=== PATIENT | male | born 2000 | race Caucasian/White ===

== ENCOUNTER 2024-02-01 09:29 | Emergency (ER) | payer OTHER, SELFPAY ==
[2024-02-01 09:38] VITALS: BP 114/65; PULSE 90; RESP 20; TEMP 36.9; O2SAT 98
--- NOTE | 2024-02-01 10:17 | ED.URI ---
HPI - URI/Sore Throat General Chief Complaint: Upper Respiratory Infection Stated Complaint: throat Time Seen by Provider: 02/01/24 10:10 Source: patient, RN notes reviewed and old records reviewed Mode of arrival: ambulatory Limitations: no limitations History of Present Illness HPI Narrative: 23 year old male presents to [facility] with complaints of 2 weeks duration of sore throat, nasal congestion and drainage, facial pressure, Patient reports that he had some fevers when he was initially ill but none now. He reports that his throat remains sore and he noted some pustules in the back of his throat today.. Patient states that he has been taking allergy medication with no improvement in symptoms. He states he had negative COVID test at home 3 days ago. MD elicited complaint: sore throat, rhinorrhea and nasal congestion Onset (ago): week(s) (2) Consistency: constant Severity: moderate Able to tolerate fluids by mouth: Yes Exacerbating factors: swallowing Treatments prior to arrival: other (allergy medication) Related Data Allergies Allergy/AdvReac Type Severity Reaction Status Date / Time No Known Allergies Allergy Verified 02/01/24 09:42 Review of Systems Review of Systems: CONSTITUTIONAL:Reports malaise, no present chills, sweats, or fever. EYES: Denies visual changes, redness, or discharge. ENT: Reports rhinorrhea, congestion, sinus pain, no otalgia and positive for sore throat. CARDIOVASCULAR: Denies chest pain, palpitations, or edema. RESPIRATORY: Reports cough.? Denies dyspnea. GASTROINTESTINAL: Denies abdominal pain, nausea, vomiting, diarrhea SKIN: Denies rash or itching. MUSCULOSKELETAL: Denies myalgia. NEUROLOGIC: reports headache. All systems reviewed & are unremarkable except as noted in HPI and below PMFSH Social History Social History (Updated 02/02/24 @ 10:15 by Anna Cerrato NP) Smoking status: Never smoker Alcohol intake: current Alcohol use details: social Substance use type: does not use Living arrangements: with family Gender identity (if verbalized by the patient): Male Comments At time of signature, agree with nursing past medical, surgical, social and family history. There is no relevant family history pertinent to the presenting complaint Exam Narrative: GENERAL: Well-appearing, well-nourished, and in no acute distress. HEAD: Normocephalic EYES: PERRLA, conjunctivae clear ENT: Nares clear, turbinates edematous and erythematous, clear discharge facial pressure and headache,., Mucous membranes moist. TM pearly morin with dull light reflex bilaterally; no tragal tenderness. Oropharynx erythematous without lesions. Tonsils red minimally enlarged and with white exudates, no drooling, no hoarseness, no trismus, uvula midline.post nasal drainage noted NECK: Supple. lymphadenopathy CHEST: Clear to auscultation, breath sounds equal. No wheezing, rhonchi, rales, or stridor. No respiratory distress, speaks in full sentences.no acute cough noted SAO2 98% on room air HEART: Regular rate and rhythm. No murmur heard. SKIN: Warm, dry, no rash. NEURO: Alert and oriented x3. PSYCH: Normal mood and affect Course Course Emergency Course: Patient is aware of diagnosis, understands and agrees to treatment plan.? Anticipatory guidance given.? Patient agrees to follow-up as directed and is aware of reasons to seek care at the emergency department. Portions of this record may have been created with voice recognition software Level of Care: Express Care Visit Vital Signs Vital signs: Vital Signs Temperature 36.9 C 02/01/24 09:38 Pulse Rate 90 02/01/24 09:38 Respiratory Rate 20 02/01/24 09:38 Blood Pressure 114/65 02/01/24 09:38 Pulse Oximetry 98 02/01/24 09:38 Oxygen Delivery Room Air 02/01/24 09:38 Temperature 36.9 C 02/01/24 09:38 Pulse Rate 90 02/01/24 09:38 Respiratory Rate 20 02/01/24 09:38 Blood Pressure 114/65
== END 2024-02-01 10:27 | disposition home or self-care (01) ==
PROVIDERS: Emergency Provider Registered Nurse
DX: J02.9 Acute pharyngitis, unspecified (principal); J32.9 Chronic sinusitis, unspecified
CPT/HCPCS: 87081; 87880; 99213; G0463

== ENCOUNTER 2024-09-01 11:45 | Emergency (ER) | payer BC, SELFPAY ==
[2024-09-01 12:00] VITALS: BP 117/62; PULSE 81; RESP 20; TEMP 37; O2SAT 98
--- NOTE | 2024-09-01 19:46 | ED.URI ---
HPI - URI/Sore Throat General Chief Complaint: Upper Respiratory Infection Stated Complaint: Cough/Headache/Fever/Chills Source: patient, RN notes reviewed and old records reviewed Mode of arrival: ambulatory Limitations: no limitations History of Present Illness HPI Narrative: 24-year-old male to Express Care with complaint of headache, chills, cough since Thursday. Patient has attempted to treat at home with Tylenol and [id number] flu and cold medications with little relief. Patient denies fevers, allergies, pertinent medical history. Patient able to tolerate fluids by mouth. Patient resting in exam room in no acute distress, Appears tired and uncomfortable. Related Data Allergies Allergy/AdvReac Type Severity Reaction Status Date / Time No Known Allergies Allergy Verified 09/01/24 12:05 Review of Systems Review of Systems: All systems reviewed & are unremarkable except as noted in HPI and below Constitutional: Constitutional: Reports as per HPI, Reports chills and Reports headache(s) Eyes: Eyes: Reports no additional eye complaints ENT: Reports system reviewed and no additional complaints, except as documented Cardiovascular: Cardiovascular: Reports no additional cardiovascular complaints, Denies chest pain and Denies dyspnea Respiratory: Respiratory: Reports no additional respiratory complaints, Reports cough and Denies dyspnea Musculoskeletal: Musculoskeletal: Reports no additional musculoskeletal complaints Neurologic: Reports system reviewed and no additional complaints, except as documented Psychiatric: Psychiatric: Reports no additional psychiatric complaints PMFSH Social History Social History Smoking status: Never smoker Alcohol intake: current Alcohol use details: social Substance use type: does not use Living arrangements: with family Gender identity (if verbalized by the patient): Male Comments At the time of my signature, I reviewed and agree with the nursing past medical, surgical, social, and family history. There is no relevant family history pertinent to the patient complaint. Exam Const: General: cooperative, no acute distress, alert, tired appearing, uncomfortable and well nourished Nutritional Appearance: well nourished Orientation/consciousness: patient oriented x3 Limitations: no limitations HENMT: Head: normal to inspection Ears: external ears normal Face/Nose/Sinus: Normal external nose present, Normal nares present, normal facial exam, No erythema and No edema Face and sinus: normal facial exam, no erythema and no edema Mouth: Yes Normal oral and palatal mucosa present Eyes: General: appearance normal, both eyes and all related structures Neck: Neck: normal visual inspection, full ROM and no meningeal signs Lymphatic: no lymphadenopathy noted and no lymphedema noted Chest: Chest palpation & inspection: normal inspection of the chest Resp: Effort & Inspection: normal respiratory effort and able to speak in complete sentences Auscultation: diminished lung sounds on the left in the lower lung millan Cardio: Jugular venous distension: no JVD Rate: regular rate Rhythm: regular rhythm Back/Spine/Pelvis: Cervical Spine: cervical ROM normal Skin: General skin exam: normal color, no rashes or lesions noted and turgor normal Neuro: General: patient oriented x3, gait normal, moves all extremities and no meningeal signs Speech: normal speech Gait exam (Neuro): Normal gait present Extrem: General: normal to inspection, full ROM and capillary refill normal Psych: Appearance: grossly normal and well kempt Course Course Emergency Course: Some parts of this dictation were generated by voice recognition software and may contain typographical and/or grammatical inaccuracies. Level of Care: Express Care Visit Vital Signs Vital signs: Vital Signs Temperature 37.0 C 09/01/24 12:00 Pulse Rate 8
== END 2024-09-01 13:00 | disposition home or self-care (01) ==
PROVIDERS: Emergency Provider Nurse Practitioner Family
DX: J18.9 Pneumonia, unspecified organism (principal)
CPT/HCPCS: 99213; G0463

== ENCOUNTER 2025-03-12 08:36 | Emergency (ER) | payer BC, SELFPAY ==
[2025-03-12 08:38] VITALS: BP 113/75; PULSE 65; RESP 16; TEMP 36.6; O2SAT 99
[2025-03-12] MEDS: TETANUS,DIPHTHERIA,AC PERTUSSIS ADULT (0.5 ML) BOOSTRIX IM (08:53)
[2025-03-12] MEDS: CELLULOSE OXIDIZED 2 x 14 INCH 1 PKT XX (09:14)
--- NOTE | 2025-03-12 09:21 | ED_ITS ---
HPI - General Adult General Chief complaint: Skin/Abscess/Foreign Body Stated complaint: Dog Bite/Left Hand Source: patient Mode of arrival: ambulatory Limitations: no limitations History of Present Illness HPI narrative: Pt presents for evaluation of dog bites to the left hand that occurred just [employer]. His girlfriend's brother's dog bit him when he was attempting to wipe it's feet off. He states the dog is a pitbull mix. He believes the dog is UTD on vaccinations. Pt is unsure when his last tetanus vaccine was. He denies any pain. No loss of ROM. He is ambidextrous. He is not diabetic. Related Data Allergies Allergy/AdvReac Type Severity Reaction Status Date / Time No Known Allergies Allergy Verified 03/12/25 08:46 Review of Systems Review of Systems: CONSTITUTIONAL: Denies fever, chills, or sweats. EYES: Denies visual changes, redness, or discharge. ENT: Denies rhinorrhea, congestion, sore throat, or otalgia. CARDIOVASCULAR: Denies chest pain, palpitations, or edema. RESPIRATORY: Denies cough or dyspnea. GASTROINTESTINAL: Denies abdominal pain, nausea, vomiting, or diarrhea. GENITOURINARY: Denies dysuria or hematuria. SKIN: Reports dog bites to the left hand MUSCULOSKELETAL: Denies back pain, joint pain, or myalgia. NEUROLOGIC: Denies headache, numbness, dizziness, or weakness. PSYCHIATRIC: Denies anxiety or depression. [facility] Past Medical History Medical History No pertinent past medical history Surgical History Surgical History No pertinent past surgical history Family History Family History Mother Family history non-contributory Social History Social History Smoking status: Never smoker Alcohol intake: current Alcohol use details: social Substance use type: does not use Living arrangements: with family Gender identity (if verbalized by the patient): Male Exam Narrative: GENERAL: Well-appearing, well-nourished, and in no acute distress. HEAD: Normocephalic, atraumatic. EYES: PERRLA and EOMI. ENT: Nares clear, no rhinorrhea or epistaxis. Mucous membranes moist. O ropharynx without tonsillar hypertrophy exudate or other lesions. Bilateral TMs pearly morin nonbulging NECK: Supple. No adenopathy or masses. No carotid bruits or JVD CHEST: Clear to auscultation. No respiratory distress. No wheezes rales or rhonchi HEART: Regular rate and rhythm. No murmur heard. Normal peripheral pulses. ABDOMEN: Soft, nontender, nondistended, normal active bowel sounds. EXTREMITIES: Normal range of motion. No edema. SKIN: There are multiple puncture wounds to the 3rd and 4th digits of the left hand and also just proximal to the palmar aspect of the 4th MCP joint NEURO: No focal deficits. Alert and oriented x3. PSYCH: Normal mood and affect. Course Course Emergency Course: This is a 24-year-old male who presented for evaluation of dog bites. Wounds were thorough cleaned. Surgicel applied to one puncture wound. Dressing applied. Pt tolerated well. He was updated on tetanus. He was advised on wound care. Follow up with primary provider. Go to the ER for worsening symptoms. Pt in agreement with plan of care. Level of Care: Express Care Visit Vital Signs Vital signs: Vital Signs Temperature 36.6 C 03/12/25 08:38 Pulse Rate 65 03/12/25 08:38 Respiratory Rate 16 03/12/25 08:38 Blood Pressure 113/75 03/12/25 08:38 Pulse Oximetry 99 03/12/25 08:38 Oxygen Delivery Room Air 03/12/25 08:38 Temperature 36.6 C 03/12/25 08:38 Pulse Rate 65 03/12/25 08:38 Respiratory Rate 16 03/12/25 08:38 Blood Pressure 113/75 03/12/25 08:38 Pulse Oximetry 99 03/12/25 08:38 Oxygen Delivery Room Air 03/12/25 08:38 Medical Decision Making Vital Signs Vital Signs: Vital Signs Temperature 36.6 C 03/12/25 08:38 Pulse Rate 65 03/12/25 08:38 Respiratory Rate 16 03/12/25 08:38 Blood Pressure 113/75 03/12/25 08:38 Pulse Oximetry 99 03/12/25 08:38 Oxygen Delivery Room Air 03/12/25 08:38 Temperature 36.6 C 03/12/25 08:38 Pulse Rate 65 03/12/25 08:38 Respiratory Rate 16 03/12/25 08:38 Blood Pressure 113/75 03/12/25 08:38 Pulse Oximetry 99 03/12/25 08:38 Oxygen Delivery Room Air 03/12/25 08:38 Discharge Plan Discharge Clinical Impression: Dog bite of left hand Patient Disposition: Home Condition: Stable Instructions: Antibiotic Form, Animal Bite (ED) Additional Instructions: WASH WOUND THREE TIMES DAILY WITH ANTIBACTERIAL SOAP AND WATER PAT DRY APPLY NEOSPORIN THEREAFTER Patient Language: Greek Prescriptions: New amoxicillin-pot clavulanate 875-125 mg tablet 1 tablet PO Q12H Qty: 20 0RF No Action doxycycline monohydrate 100 mg capsule 100 mg PO BID 5 Days Qty: 10 0RF prednisone 20 mg tablet See Rx Instructions .ROUTE .COMPLEX Qty: 9 0RF Rx Instructions: Take 40mg x3 days, 20mg x3 days Follow-up/Referrals: Magno Rahman MD [Physician] - Time of Disposition: 09:20
== END 2025-03-12 09:25 | disposition home or self-care (01) ==
PROVIDERS: Emergency Provider Nurse Practitioner
DX: S61.233A Puncture wound without foreign body of left middle finger without damage to nail, initial encounter (principal); S61.235A Puncture wound without foreign body of left ring finger without damage to nail, initial encounter; S61.432A Puncture wound without foreign body of left hand, initial encounter; W54.0XXA Bitten by dog, initial encounter; Z23 Encounter for immunization
CPT/HCPCS: 90471; 90715; 99213; A9270; G0463